=== PATIENT | female | born 1980 | race Hispanic/Latino ===

== ENCOUNTER 2018-09-05 11:22 | Outpatient (CLI) | payer MEDICARE, MEDICAID | END 2018-09-05 11:23 | disposition home or self-care (01) | LOC: LAB 11:22 ==

== ENCOUNTER 2018-11-02 12:43 | Outpatient (CLI) | payer MEDICARE, MEDICAID | END 2018-11-02 12:44 | disposition home or self-care (01) | LOC: LAB 12:43 ==